=== PATIENT | female | born 1985 | race Caucasian/White ===

== ENCOUNTER 2017-07-29 12:51 | Emergency (ER) | payer SELFPAY ==
[~2017-07-29] VITALS: Ht 170.1 cm; Wt 59.0 kg
[~2017-07-29 12:51] MED LIST: AMOXICILLIN500 MG PO; DEPO-PROVER150 MG/M2 IM; HYDROCODONE BIT1 T11 PO; PENICILLIN VK500 MG PO; PRENATAL1 TA1 PO; TRAMADOL HCL50 MG PO; ZITHROMAX Z PA250 MG PO
[2017-07-29] MEDS ORDERED: PRENATAL VITAM1 EAC4 PO (13:05)
== END 2017-07-29 13:14 | disposition home or self-care (01) ==
LOC: ED 12:51
DX: O26.891 Other specified pregnancy related conditions, first trimester (principal); J02.9 Acute pharyngitis, unspecified; Z3A.01 Less than 8 weeks gestation of pregnancy

== ENCOUNTER → 2020-03-06 | Outpatient (CLI) | payer OTHER ==
[~2020-03-06] MED LIST changes: +CLINDAMYCIN150 MG PO; +PRENATAL VITAM1 EAC4 PO; +Peridex 473 ML473 ML PO; +ZOLOFT50 MG PO
== END | disposition home or self-care (01) ==
LOC: COVID19 14:00
PROVIDERS: ATTEND Internal Medicine
DX: Z20.828 Contact with and (suspected) exposure to other viral communicable diseases (principal)

== ENCOUNTER 2020-08-27 08:29 | Emergency (ER) | payer OTHER ==
[~2020-08-27] VITALS: Ht 167.6 cm; Wt 81.8 kg
[2020-08-27] MEDS ORDERED: SUBOXONE 8 MG-1 EACH SL (08:41)
[2020-08-27] MEDS ORDERED: Wellbutrin Sr100 MG PO (08:41)
[2020-08-27] MEDS ORDERED: OMEPRAZOLE40 MG PO (08:43)
[2020-08-27] MEDS ORDERED: VITAMIN D3250 MC2 PO (08:43)
[2020-08-27] MEDS ORDERED: AMOXICILLIN500 M3 PO (09:03)
== END 2020-08-27 09:23 | disposition home or self-care (01) ==
LOC: ED 08:29
DX: K04.7 Periapical abscess without sinus (principal); F17.200 Nicotine dependence, unspecified, uncomplicated; Z79.899 Other long term (current) drug therapy

== ENCOUNTER 2020-09-11 07:39 | Emergency (ER) | payer OTHER ==
[~2020-09-11] VITALS: Ht 167.6 cm; Wt 74.8 kg
[~2020-09-11 07:39] MED LIST changes: +AMOXICILLIN500 M3 PO; +OMEPRAZOLE40 MG PO; +SUBOXONE 8 MG-1 EACH SL; +VITAMIN D3250 MC2 PO; +Wellbutrin Sr100 MG PO
[2020-09-11] MEDS ORDERED: CLEOCIN HCL150 MG PO (07:56)
== END 2020-09-11 07:59 | disposition home or self-care (01) ==
LOC: ED 07:39
DX: K08.89 Other specified disorders of teeth and supporting structures (principal); Z79.2 Long term (current) use of antibiotics; Z79.899 Other long term (current) drug therapy; Z98.890 Other specified postprocedural states